=== PATIENT | male | born 1985 | race Caucasian/White ===

== ENCOUNTER 2017-05-17 15:38 | Emergency (ER) | payer MEDICAID, SELFPAY ==
[~2017-05-17] VITALS: Ht 180.3 cm; Wt 72.6 kg
[2017-05-17] MEDS ORDERED: CEPHALEXIN 500 MG CAPSULE PO STA (16:14)
[2017-05-17] MEDS ORDERED: CEPHALEXIN 500 MG CAPSULE ONE (16:22)
[2017-05-17] MEDS ORDERED: DIPH,PERTUSS(ACELL),TET VAC/PF 0.5 ML IM-VACC ONE ×2 (16:23→16:30)
[2017-05-17] MEDS ORDERED: BACITRACIN ZINC OINT 500U/GM, 0.9 GM ONE (17:18)
[2017-05-17 17:44] VITALS: BP 128/88
== END 2017-05-17 17:46 | disposition home or self-care (01) ==
LOC: ED 16:10
DX: S93.401A Sprain of unspecified ligament of right ankle, initial encounter (principal); S80.211A Abrasion, right knee, initial encounter; S50.312A Abrasion of left elbow, initial encounter; S80.212A Abrasion, left knee, initial encounter; S90.512A Abrasion, left ankle, initial encounter; V49.00XA Driver injured in collision with unspecified motor vehicles in nontraffic accident, initial encounter; Y93.89 Activity, other specified; Y99.8 Other external cause status; Y92.89 Other specified places as the place of occurrence of the external cause
CPT/HCPCS: 90471; 90715

== ENCOUNTER 2019-02-25 15:04 | Emergency (ER) | payer MEDICAID ==
[~2019-02-25] VITALS: Ht 180.3 cm; Wt 71.0 kg
[2019-02-25 15:11] VITALS: BP 142/79
== END 2019-02-25 15:38 | disposition home or self-care (01) ==
LOC: ED 15:37
DX: K08.89 Other specified disorders of teeth and supporting structures (principal)
CPT/HCPCS: 99283